=== PATIENT | female | born 1955 | race Caucasian/White ===

== ENCOUNTER 2023-05-29 21:08 | Emergency (ER) | payer MEDICARE, SELFPAY ==
--- NOTE | ~2023-05-29 | CT_ITS ---
EXAMINATION: CT CHEST WITHOUT CONTRAST CLINICAL INFORMATION: Fall, right lower rib pain COMPARISON: None available. TECHNIQUE: Multidetector volumetric CT imaging of the chest was done. Axial MIP volume rendering provided. Sagittal and coronal reformatted images were obtained. This CT examination was performed using dose optimization techniques as appropriate, variously including the following: *Automated exposure control *Adjustment of mA and/or kV according to patient size (this includes techniques or standardized protocols for targeted exams where dose is matched to indication/reason for exam; i.e. extremities or head) *Use of iterative reconstruction technique DLP: 613 mGy-cm FINDINGS: LUNGS: Several bilateral lung nodules, with energy conservation representative examples as follows. There is a 3 mm right upper lobe nodule on image 175/476. There is a 2 mm anterior right lower lobe nodule on image 264. There is a lateral right middle lobe nodule measuring 2 mm on image 240. There is a 2 mm left upper lobe nodule on image 123. No regions of consolidation bilaterally. MEDIASTINUM: The visualized thyroid gland is unremarkable. Small hiatal hernia is present. Hyperdense material within the esophagus suggests sequelae of reflux or dysmotility. There are subcentimeter mediastinal lymph nodes within the range of normal variation. Cardiac size is within normal limits; no pericardial effusion. Scattered calcification along the aorta. CORONARY ARTERY CALCIFICATION: Present PLEURA: No pneumothorax or pleural effusion. AXILLA: No lymphadenopathy. UPPER ABDOMEN: Calcified granuloma in the liver. Status post cholecystectomy. Partial fatty atrophy of the pancreas. OSSEOUS STRUCTURES: No acute fracture identified. Mild scattered degenerative endplate changes in the spine. Partial visualization of fusion hardware in the cervical spine. CT/CT chest wo IV con IMPRESSION: 1. No acute traumatic findings identified in the chest. 2. Several tiny lung nodules as noted above, nonspecific. See follow-up recommendations below. 3. Small hiatal hernia, with findings suggesting reflux or dysmotility. If clinically warranted, this could be further assessed with fluoroscopic esophagram. 4. Coronary artery calcifications. Correlation with cardiac risk factors is recommended. According to the UPDATED 2017 Fleischner Society recommendations, the advised follow-up imaging for solid nodules < 6 mm is: LOW RISK PATIENT: No routine follow-up. HIGH RISK PATIENT: Optional CT at 12 months.
--- NOTE | ~2023-05-29 | CT_ITS ---
EXAMINATION: CT CERVICAL SPINE WITHOUT CONTRAST CLINICAL INFORMATION: Status post fall COMPARISON: None available. TECHNIQUE: Multidetector helical imaging was performed through the cervical spine. Coronal and sagittal reformatted images were created. This CT examination was performed using dose optimization techniques as appropriate, variously including the following: *Automated exposure control *Adjustment of mA and/or kV according to patient size (this includes techniques or standardized protocols for targeted exams where dose is matched to indication/reason for exam; i.e. extremities or head) *Use of iterative reconstruction technique DLP: 613 mGy-cm FINDINGS: There is mild grade 1 anterolisthesis of C3 on C4 which may be chronic/degenerative in the setting of facet arthropathy. There are postsurgical changes in the mid to lower cervical spine with anterior plate and screws which appears centered at C5-C6. The margins of the C4-C7 vertebral bodies are not adequately delineated, and much of the vertebral bodies appear replaced by an expansile lytic lesion. This also extends into the transverse processes and facets at these levels bilaterally. There is suggestion of at least mild associated central canal narrowing. There is straightening of the normal cervical lordosis. No definite acute fracture is seen in this setting. Visualized portions of the lung apices are unremarkable. The thyroid gland is unremarkable. CT/CT cervical spine wo IV con IMPRESSION: 1. No definite acute findings identified in the cervical spine. 2. Postsurgical changes of the mid to lower cervical spine with anterior plate and screws. The margins of the C4-C7 vertebral bodies are not adequately delineated, and much of the vertebral bodies appear replaced by an expansile lytic lesion. This also extends into the transverse processes and facets at these levels bilaterally. There is suggestion of at least mild associated central canal narrowing. Correlation with patient history is recommended, and if warranted this may be better assessed with MRI.
[2023-05-29 21:20] VITALS: BP 145/73; PULSE 76; RESP 20; TEMP 36.7; O2SAT 98; BMI 24.1
[2023-05-30 00:25] VITALS: BP 154/64; PULSE 70; RESP 17; O2SAT 95
--- NOTE | 2023-05-30 00:47 | ED.FALL ---
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 diagnosed 4 months ago when she was in [place] had MRI done at that time been followed by bone specialist and PCP Related Data Previous Rx's Medication Instructions Recorded oxycodone-acetaminophen 5 mg-325 1 tab PO Q6H PRN pain #20 tabs 05/30/23 mg tablet (Percocet) Allergies Allergy/AdvReac Type Severity Reaction Status Date / Time gabapentin [From Neurontin] Allergy Unknown RASH Unverified 05/29/23 21:26 valdecoxib [From Bextra] Allergy Unknown RASH Unverified 05/29/23 21:26 From Aciphex Allergy Unknown RASH Uncoded 05/29/23 21:26 From Bentyl Allergy Unknown RASH Uncoded 05/29/23 21:26 From Demerol AdvReac Unknown VOMITING Uncoded 05/29/23 21:26 Review of Systems Review of Systems: Yes all other systems are reviewed and are negative [facility] Social History Social History Advance Directives: No Advance Directives Information Provided: Yes Physical Exam Vital Signs: Vital Signs: Last Vital Signs Temp 98 F 05/30/23 02:00 Pulse 73 05/30/23 03:50 Resp 17 05/30/23 03:50 BP 151/71 H 05/30/23 03:50 Pulse Ox 97 05/30/23 03:50 O2 Del Method Room Air 05/30/23 03:50 BMI result Body Mass Index 24.1 Appearance: Alert. Oriented X3. No acute distress. Eyes: PERRLA, No Nystagmus HEENT: Pharynx normal. Oral Mucosa moist, AT NC Neck: Normal inspection. Neck supple. Midline tenderness+ CVS: Normal heart rate and rhythm. Pulses normal. Respiratory: No respiratory distress. Equal air entry bilateral, no wheezing/rales/rhonchi tenderness right under breast anteriorly no crepitation no ecchymosis Abdomen: Soft and nontender. Bowel sounds are present, no mass palpable, no CVA tenderness Skin: Skin warm and dry. Normal skin color. Normal skin turgor. Extremities: No lower extremity edema. No calf tenderness Neuro: Oriented X 3. No motor deficit. No sensory deficit.No cerebellar signs , cranial nerves II-XII intact Medications Administered Discontinued Medications Generic Name Dose Route Start Last Admin Trade Name Amanda PRN Reason Stop Dose Admin Morphine Sulfate 15 mg 05/30/23 00:57 05/30/23 01:22 Morphine Sulfate Immed Release 15 Mg Tablet PO 05/30/23 00:58 15 mg ONCE ONE Administration Ondansetron HCl 4 mg 05/30/23 03:43 05/30/23 03:49 Ondansetron Odt 4 Mg Tab.Rapdis TRANSLINGU 05/30/23 03:44 4 mg ONCE ONE Administration Medical Decision Making Medical Decision Making [facility] Narrative: Patient status post mechanical fall tenderness the right ribs likely rib fracture/rib contusion will do a CT scan of the ribs and C-spine as she has chronic pain in the neck Patient does have a lytic lesion in the cervical spine and which patient new was diagnosed 4 months ago , when she was in [place] and been followed up by her PCP Differential Diagnosis Differential Diagnoses: The differential diagnosis associated with the presentation includes Right rib fracture/contusion Admission/Observation Consideration of admission/observation: Escalation of care including admission/observation considered Independent Interpretation I performed an independent interpretation of an: CT Scan Radiology Impression Discussion of test interpretation with radiology: I have reviewed the radiologist's reading. Radiologist Impression: CT/CT cervical spine wo IV con IMPRESSION: 1. No definite acute findings identified in the cervical spine. 2. Postsurgical changes of the mid to lower cervical spine with anterior plate and screws. The margins of the C4-C7 vertebral bodies are not adequately delineated, and much of the vertebral bodies appear replaced by an expansile lytic lesion. This also extends into the transverse processes and facets at these levels bilaterally. There is suggestion of at least mild associated central canal narrowing. Correlation with patient history is recommended, and if warranted this may be better assessed with MRI. Discharge Plan Discharge Clinical Impression: Contusion of rib on right side Patient Disposition: Home, Self-Care Instructions: Rib Contusion (ED) Additional Instructions: Take pain medication as prescribed for right rib contusion Your CT scan did not reveal any rib fracture CT scan of the cervical spine showed: 1. No definite acute findings identified in the cervical spine. 2. Postsurgical changes of the mid to lower cervical spine with anterior plate and screws. The margins of the C4-C7 vertebral bodies are not adequately delineated, and much of the vertebral bodies appear replaced by an expansile lytic lesion. This also extends into the transverse processes and facets at these levels bilaterally. There is suggestion of at least mild associated central canal narrowing. Correlation with patient history is recommended, and if warranted this may be better assessed with MRI. Follow-up with your PCP for further management Prescriptions: New oxycodone-acetaminophen [Percocet] 5-325 mg tablet 1 tab PO Q6H PRN (Reason: pain) Qty: 20 0RF Rx Instructions: Partial Fill upon patient request. Interventions: ED Discharge Assessment Last Done: 05/30/23 03:57 Discharge Date/Time: 05/30/23 03:58
[2023-05-30] MEDS: Morphine Sulfate Immed Release 15 MG TABLET PO (01:22)
[2023-05-30 02:00] VITALS: BP 156/93; PULSE 88; RESP 16; TEMP 36.6; O2SAT 97
[2023-05-30] MEDS: Ondansetron ODT 4 MG TAB.RAPDIS TRANSLINGU (03:49)
[2023-05-30 03:50] VITALS: BP 151/71; PULSE 73; RESP 17; O2SAT 97
== END 2023-05-30 03:58 | disposition home or self-care (01) ==
PROVIDERS: Emergency Provider Internal Medicine
DX: S20.211A Contusion of right front wall of thorax, initial encounter (principal); W01.0XXA Fall on same level from slipping, tripping and stumbling without subsequent striking against object, initial encounter; Y93.K1 Activity, walking an animal; Y92.9 Unspecified place or not applicable; Y99.9 Unspecified external cause status
CPT/HCPCS: 71250; 72125; 99284

== ENCOUNTER 2025-03-20 10:53 | Outpatient (AMB) | payer MEDICARE, SELFPAY ==
--- NOTE | 2025-03-20 11:07 | A.OFFPC_ITS ---
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 Required: No Accompanied by: Self / Same As Patient Allergies gabapentin (From Neurontin) Allergy (Unknown, Verified 03/20/25 11:07) RASH valdecoxib (From Bextra) Allergy (Unknown, Verified 03/20/25 11:07) RASH From Aciphex Allergy (Unknown, Uncoded 05/29/23 21:) RASH From Bentyl Allergy (Unknown, Uncoded 05/29/23:) RASH From Demerol Adverse Reaction (Unknown, Uncoded 05/29/23:) VOMITING Tobacco use date assessed: 03/20/25 Fall risk assessment: 2 + Falls in past year Last assessed Fall Risk: 03/20/25 Dental Screening Dental Screen Date: 03/20/25 Did you have a dental visit in the last 12 months?: Yes Did you have a dental problem in the last 6 months where you did not have access to dental care?: No Was dental information given to patient?: Patient has dentist HPI HPI Comments History of Present Illness Details History of Present Illness The patient is a 69-year-old female presenting with follow-up for osteomyelitis s/p cervical fusion, management of type 2 diabetes mellitus, and evaluation of neck pain. Osteomyelitis: - The patient had an infection in the ne ck that led to osteomyelitis, requiring surgical intervention with cadaver bone grafts and screws. - The infection was initially identified due to shoulder and neck pain, and the patient underwent surgery on December 10. - Post-surgery, the patient has not foll owed up with the neurosurgeon but was informed that the incision was healing well. - The patient experienced dizziness and headaches, possibly related to medication, and has had difficulty contacting the infectious disease specialist. Type 2 Diabetes Mellitus: - The patient is on Farxiga and insulin therapy, including Lantus and Aspart, for type 2 diabetes mellitus management. - The patient injects 20 units of insuli n at night and has faced issues with medication coverage for fast-acting insulin. Neck Pain: - The patient reports persistent neck pa in following surgery for osteomyelitis, with limited range of motion and difficulty walking. - The patient has a history of falls and uses a Rolator for mobility, with concerns about long-distance walking. Asthma: - The patient uses albuterol and montelu kast for asthma management, with no recent emergency room visits for asthma exacerbations. Hypertension: - The patient is on losartan for hyperte nsion management. Hyperlipidemia: - The patient takes rosuvastatin for hyp erlipidemia management. Depression: - The patient is on fluoxetine for depre ssion and does not currently see a therapist. Dizziness: - The patient reports dizziness, possibl y related to medication, and uses meclizine for management. Slipped Disc: - The patient has a slipped disc in the lumbar region, contributing to back pain and sciatica that radiated to her right thigh. Review of Systems - Neurological: Reports dizziness and he adaches. Denies fever or chills. - Musculoskeletal: Reports neck and shou lder pain, difficulty walking, and falls. - Respiratory: Denies recent asthma exac erbations. - Gastrointestinal: Reports abdominal pa in managed with esomeprazole. 10-point ROS reviewed and negative excep t as noted in HPI Past Medical History - Osteomyelitis with surgical interventi on - Type 2 Diabetes Mellitus - Asthma - Hypertension - Hyperlipidemia - Depression - Slipped disc in lumbar region - Hysterectomy at age 43 Health Maintenance - Mammogram: Due for screening - Colonoscopy: Last performed in 2019, d ue for repeat Physical Exam General: Well-appearing, in no acute distress, but wearing a neck brace. Vital signs: Within normal limits. HEENT: Normocephalic, atraumatic. PERRLA, EOMI. Conjunctiva clear, sclera anicteric. Oropharynx clear, mucous membranes moist. TMs intact bilaterally. Neck: Supple, no lymphadenopathy, no thyromegaly, no JVD or carotid bruits. Limited range of motion due to neck brace and recent surgery from C2 to T2. Cardiovascular: RRR, normal S1/S2, no murmurs, rubs, or gallops. Peripheral pulses 2+ and symmetric. No edema. Respiratory: Lungs clear to auscultation bilaterally, no wheezes, rales, or rhonchi. Normal effort. Abdomen: Soft, non-tender, non-distended. Normoactive bowel sounds. No hepatosplenomegaly, no masses. MSK: Full range of motion, no joint swelling or deformity. Normal gait. Uses a Rolator for ambulation due to difficulty walking and history of falls. Skin: Warm, dry, intact. No rashes, lesions, or pallor. Scar present on the lower crease of the anterior neck. scar on posterior neck from C2-T2 Neuro: Alert and oriented x3. Cranial nerves II-XII intact. Strength 5/5 throughout. Sensation intact. Reflexes 2+ symmetric. Normal coordination and gait with use of rollator. Reports dizziness attributed to medication. Psych: Appropriate mood and affect. Normal judgment and insight. Reports anxiety and depression, managed with fluoxetine. Plan 1. Osteomyelitis - The patient requires follow-up with a neurosurgeon to assess surgical outcomes and healing progress. - Physical therapy is recommended to imp rove mobility and strength. 2. Type 2 Diabetes Mellitus - Continue current medication regimen wi th Farxiga and insulin, addressing medication coverage issues for fast-acting insulin. 3. Neck Pain - Recommend physical therapy to address mobility issues and pain management. 4. Asthma - Monitor asthma symptoms and adjust med ications as needed based on symptom exacerbation. 5. Hypertension - Continue losartan for blood pressure m anagement. 6. Hyperlipidemia - Continue rosuvastatin for lipid manage ment. 7. Depression - Continue fluoxetine for depression man agement, consider therapy referral if symptoms persist. 8. Dizziness - Evaluate medication side effects and a djust treatment as necessary. 9. Slipped Disc - Consider physical therapy to manage sy mptoms and improve function. Discussion Notes During the visit, we discussed the need for follow-up with a neurosurgeon to evaluate the healing of the osteomyelitis surgery. I recommended physical therapy to improve mobility and manage neck pain. We also reviewed the patient's diabetes management plan, emphasizing the importance of medication adherence and addressing coverage issues for insulin. We talked about the patient's asthma management, advising monitoring of symptoms and potential medication adjustments. Additionally, we discussed the continuation of current treatments for hypertension, hyperlipidemia, and depression, with a consideration for therapy referral if depressive symptoms persist. I advised the patient to be vigilant about dizziness and to report any exacerbations. We also planned for routine health maintenance, including mammogram and colonoscopy screenings. Patient Instructions - Follow up with a neurosurgeon to asses s surgical healing. - Attend physical therapy sessions to im prove mobility and manage neck pain. - Continue diabetes medications as presc ribed and address any coverage issues with your provider. - Monitor asthma symptoms and report any exacerbations. - Continue current medications for hyper tension, hyperlipidemia, and depression. - Be aware of dizziness and report any w orsening symptoms. - Schedule routine health screenings, in cluding a mammogram and colonoscopy. [facility] Family History (Updated 03/20/25 @ 11:30 by Wild Hernandez MA) Father Heart problem Mother Diabetes Social History (Updated 03/20/25 @ 11:09 by Wild Hernandez MA) Housing: Apartment Alcohol intake: current Alcohol intake frequency: does not drink Patient Tobacco Use Status: Never used Tobacco service: No Current occupational status: disabled Cognitive needs: Yes (walker and wheel chair) Hearing needs: Yes (b/l hearing aids) Vision needs: Yes (rx glasses) Questionnaire PHQ-9 Over the last 2 weeks, how often have you been bothered by any of the following problems? 1. Little interest or pleasure in doing things: several days 2. Feeling down, depressed, or hopeless: several days 3. Trouble falling or staying asleep, or sleeping too much: several days 4. Feeling tired or having little energy: nearly every day 5. Poor appetite or overeating: several days 6. Feeling bad about yourself - or that you are a failure or have let yourself or your family down: several days 7. Trouble concentrating on things, such as reading the newspaper or watching television: more than half the days 8. Moving or speaking so slowly that other people could have noticed. Or the opposite - being so fidgety or restless that you have been moving around a lot more than usual: nearly every day 9. Thoughts that you would be better off or of hurting yourself in some way: several days Total score: 14 Source: Developed by Drs. Yuan Cruz, Milli Negron, Chuy Toribio and colleagues, with an educational yulia from [employer]. Thrive Questionnaire Date Thrive assessed: 03/20/25 I am a: Parent/Caregiver What is your living situation today?: I have a steady place to live Within the past 12 months, did the food you bought not last and you didn't have the money to get more?: Sometimes True Within the past 12 months, did you worry whether your food would run out before you got money to buy more?: Sometimes True Do you have trouble paying for medicines?: No Do you have trouble getting transportation to medical appointments?: No Do you have trouble paying your heating and electricity bill?: No Do you have trouble taking care of your child, family member or friend?: No Are you currently unemployed and looking for a job?: No Are you interested in more education?: No Please select the resources that you would like help with: None Currently or been in a relationship where the following occur: No concerns reported THRIVE Score: 2 AUDIT C Alcohol Use Questionnaire (AUDIT-C) 1. How often do you have a drink containing alcohol?: Never 3. How often do you have six or more drinks on one occasion?: Never Total Score: 0 CAMILLA-7 AMB Questionnaire CAMILLA-7 Date CAMILLA - 7 assessed: 03/20/25 Feeling nervous, anxious, or on edge: 1 = Several days Not being able to stop or control worryin = Several days Worrying too much about different things: 1 = Several days Trouble relaxin = More than half the days Being so restless that it is hard to sit still: 2 = More than half the days Becoming easily annoyed or irritable: 3 = Nearly every day Feeling afraid as if something awful might happen: 1 = Several days Total CAMILLA-7 score (0-4 normal; 5-9 mild; 10-14 moderate; 15-21 severe): 11 Source: Developed by Drs. Yuan Cruz, Milli Negron, Chuy Toribio and colleagues, with an educational yulia from [employer]. Physical exam (Primary Care) BMI result Body Mass Index 25.5 Tobacco/Smoking Status: Tobacco use Status Tobacco use date assessed 03/20/25 03/20/25 11:11 Patient Tobacco Use Status Never used Tobacco 03/20/25 11:11 PHQ-9: PHQ-9 Score PHQ-9: Total score 14 03/20/25 11:11 Thrive Assessment: Date of Thrive Assessment Date Thrive assessed 03/20/25 03/20/25 11:11 Currently or been in a relationship where the following occur: No concerns reported Coding Level of Care Code New Pt Level 4 (29677) Diagnoses Establishing care with new doctor, encounter for Z76.89 Encounter for screening, unspecified Z13.9 Counseling, unspecified Z71.9 History of osteomyelitis Z87.39 Type 2 diabetes mellitus with other neurologic complication, with long-term current use of insulin E11.49; 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 Diabetes mellitus complication status: with neurologic complications Diabetes mellitus complication detail: with other neurological complication Neck pain after neck surgery M96.89; M54.2 Mild intermittent asthma without complication J45.20 Asthma complication type: uncomplicated Primary hypertension I10 Hypertension type: primary hypertension Other hyperlipidemia E78.49 Hyperlipidemia type: other hyperlipidemia Major depressive disorder, remission status unspecified, unspecified whether recurrent F32.9 Depression Type: major depressive disorder Major depression recurrence: unspecified whether recurrent Active/Remission status: remission status unspecified Dizziness R42 Chronic low back pain with right-sided sciatica, unspecified back pain laterality M54.41; G89.29 Back pain laterality: unspecified Sciatica presence: with sciatica Sciatica laterality: sciatica of right side Sciatica associated with disorder of lumbar spine M53.86 Assessment & Plan Assessment & Plan (1) Establishing care with new doctor, encounter for: Code(s): Z76.89 - Persons encountering health services in other specified circumstances (2) Encounter for screening, unspecified: Code(s): Z13.9 - Encounter for screening, unspecified (3) Counseling, unspecified: Code(s): Z71.9 - Counseling, unspecified (4) History of osteomyelitis: Code(s): Z87.39 - Personal history of other diseases of the musculoskeletal system and connective tissue (5) Diabetes type 2: Code(s): E11.9 - Type 2 diabetes mellitus without complications Qualifiers: Diabetes mellitus jail insulin use: with jail use Diabetes mellitus complication status: with neurologic complications Diabetes mellitus complication detail: with other neurological complication Qualified Code(s): E11.49 - Type 2 diabetes mellitus with other diabetic neurological complication; Z79.4 - dedicated intermodal truck driver (current) use of insulin (6) Neck pain after neck surgery: Code(s): M96.89 - Other intraoperative and postprocedural complications and disorders of the musculoskeletal system; M54.2 - Cervicalgia (7) Asthma, mild intermittent: Code(s): J45.20 - Mild intermittent asthma, uncomplicated Qualifiers: Asthma complication type: uncomplicated Qualified Code(s): J45.20 - Mild intermittent asthma, uncomplicated (8) Hypertension: Code(s): I10 - Essential (primary) hypertension Qualifiers: Hypertension type: primary hypertension Qualified Code(s): I10 - Essential (primary) hypertension (9) Hyperlipidemia: Code(s): E78.5 - Hyperlipidemia, unspecified Qualifiers: Hyperlipidemia type: other hyperlipidemia Qualified Code(s): E78.49 - Other hyperlipidemia (10) Depression: Code(s): F32.A - Depression, unspecified Qualifiers: Depression Type: major depressive disorder Major depression recurrence: unspecified whether recurrent Active/Remission status: remission status unspecified Qualified Code(s): F32.9 - Major depressive disorder, single episode, unspecified (11) Dizziness: Code(s): R42 - Dizziness and giddiness (12) Chronic lower back pain: Code(s): M54.50 - Low back pain, unspecified; G89.29 - Other chronic pain Qualifiers: Back pain laterality: unspecified Sciatica presence: with sciatica Sciatica laterality: sciatica of right side Qualified Code(s): M54.41 - Lumbago with sciatica, right side; G89.29 - Other chronic pain (13) Sciatica associated with disorder of lumbar spine: Code(s): M53.86 - Other specified dorsopathies, lumbar region Plan Orders: Orders Complete Blood Count Auto Diff Today Z13.9 - Encounter for screening, un specified, Z76.89 - Persons encountering health services in other specified circumstances Comprehensive Met. Panel Today Z13.9 - Encounter for screening, unspecified, Z76.89 - Persons encountering health services in other specified circumstances Hepatitis B Surface Antigen Today Z13.9 - Encounter for screening, unspecified, Z76.89 - Persons encountering health services in other specified circumstances Hepatitis C Antibody Reflex Today Z13.9 - Encounter for screening, unspecified, Z76.89 - Persons encountering health services in other specified circumstances HIV Ab/Ag Today Z13.9 - Encounter for screening, unspecified, Z76.89 - Persons encountering health services in other specified circumstances Lipid Panel Today Z13.9 - Encounter for screening, unspecified, Z76.89 - Persons encountering health services in other specified circumstances TSH reflex Free T4 Today Z13.9 - Encounter for screening, unspecified, Z76.89 - Persons encountering health services in other specified circumstances UA CC w/rflx Micro + Cult Today Z13.9 - Encounter for screening, unspecified, Z76.89 - Persons encountering health services in other specified circumstances Vitamin B12 and Folate Today Z13.9 - Encounter for screening, unspecified, Z76.89 - Persons encountering health services in other specified circumstances Vitamin D 1,25 dihydroxy Today Z13.9 - Encounter for screening, unspecified, Z76.89 - Persons encountering health services in other specified circumstances MM screening mammo BI Today Z12.31 - Encounter for screening mammogram for malignant neoplasm of breast Hemoglobin A1c Today Z13.9 - Encounter for screening, unspecified, Z76.89 - Persons encountering health services in other specified circumstances Hepatitis B Surface Antibody Today Z13.9 - Encounter for screening, unspecified, Z76.89 - Persons encountering health services in other specified circumstances Magnesium Today Z13.9 - Encounter for screening, unspecified, Z76.89 - Persons encountering health services in other specified circumstances PT Evaluation and Treatment Today Z98.1 - Arthrodesis status Referrals Neuro Spine Referral Z87.39 - Personal history of other diseases of the musculoskeletal system and connective tissue, Z98.1 - Arthrodesis status Open Access Screening Colonoscopy Referral Z12.11 - Encounter for screening for malignant neoplasm of colon, Z12.12 - Encounter for screening for malignant neoplasm of rectum
[2025-03-20 11:12] VITALS: BP 116/62; PULSE 81; RESP 16; TEMP 36.7; O2SAT 100; BMI 25.5
== END 2025-03-20 12:07 | disposition home or self-care (01) ==
LOC: HO.HMCFMS 10:53
PROVIDERS: Visit Provider Student in an Organized Health Care Education/Training Program
DX: E11.49 Type 2 diabetes mellitus with other diabetic neurological complication (principal); Z79.4 Long term (current) use of insulin; M96.89 Other intraoperative and postprocedural complications and disorders of the musculoskeletal system; M54.2 Cervicalgia; J45.20 Mild intermittent asthma, uncomplicated; I10 Essential (primary) hypertension; E78.49 Other hyperlipidemia; F32.9 Major depressive disorder, single episode, unspecified; R42 Dizziness and giddiness; M54.41 Lumbago with sciatica, right side; G89.29 Other chronic pain; M53.86 Other specified dorsopathies, lumbar region

== ENCOUNTER → 2025-03-20 10:53 | Outpatient (BNVA) | payer MEDICARE, SELFPAY | PROVIDERS: Visit Provider Student in an Organized Health Care Education/Training Program | DX: Z76.89 Persons encountering health services in other specified circumstances (principal); E11.49 Type 2 diabetes mellitus with other diabetic neurological complication; I10 Essential (primary) hypertension; M96.89 Other intraoperative and postprocedural complications and disorders of the musculoskeletal system; M54.2 Cervicalgia; J45.20 Mild intermittent asthma, uncomplicated; E78.49 Other hyperlipidemia; F32.9 Major depressive disorder, single episode, unspecified; R42 Dizziness and giddiness; M54.41 Lumbago with sciatica, right side; G89.29 Other chronic pain; M53.86 Other specified dorsopathies, lumbar region; Z79.4 Long term (current) use of insulin; Z87.39 Personal history of other diseases of the musculoskeletal system and connective tissue; Z71.9 Counseling, unspecified; Z13.30 Encounter for screening examination for mental health and behavioral disorders, unspecified; Z13.39 Encounter for screening examination for other mental health and behavioral disorders | CPT/HCPCS: 96127; 99202 ==

== ENCOUNTER 2025-03-21 09:55 | Outpatient (REF) | payer MEDICARE, SELFPAY ==
[2025-03-21 13:22] LABS: MANUAL DIFF FLAG NO
[2025-03-21 13:35] LABS: Appearance Urine Clear; Glucose Urine UA >=1000 mg/dL (Negative); PH 6.0 (5.0-9.0); Specific Gravity - Urine 1.020 (1.005-1.025); UMIC TRIGGER UACC YES
[2025-03-21 13:48] LABS: Hematocrit 33.7 % (37.0-47.0); Hemoglobin 10.3 g/dl (12.0-16.0); Imm Gran Abs Auto 0.04 X10*3/uL (0.00-0.03); Imm Gran Pct Auto 0.5 % (0.0-0.4); Lymphocytes Absolute Auto 2.1 X10*3/uL (1.2-4.9); Mean Corpuscular HGB Conc 30.6 g/dl (31.0-35.0); Mean Corpuscular Hemoglobin 23.6 pg (27.0-33.0); Mean Corpuscular Volume 77.3 fL (80.0-98.0); NRBC Abs Auto 0.020 X10*3/uL (0.0-0.012); NRBC Pct Auto 0.2 /100WBC (0.0-0.2); Platelet Count 322 X10*3/uL (160-400); Red Blood Count 4.36 X10*6/uL (4.20-5.50); White Blood Count 8.6 X10*3/uL (4.8-10.8)
[2025-03-21 14:07] LABS: Hemoglobin A1C 166.9278 umol/L; Total Hemoglobin (HGBA1C) 2744.6418 umol/L
[2025-03-21 14:35] LABS: Alanine Aminotransferase 44 U/L (0-31); Albumin Level 4.1 g/dL (3.5-5.0); Alkaline Phosphatase 112 U/L (39-117); Anion Gap 10 (12-20); Aspartate Amino Transferase 37 U/L (5-31); Blood Urea Nitrogen 16 mg/dL (9-16); Calcium 9.1 mg/dL (8.4-10.2); Carbon Dioxide 29 mmol/L (22-29); Chloride 110 mmol/L (96-108); Cholesterol 137 mg/dL (<200); Estimated Glomerular Filt Rate > 60; HDL Cholesterol 49 mg/dL (>40); Magnesium 2.3 mg/dL (1.6-2.6); Potassium 4.7 mmol/L (3.3-5.1); Sodium 144 mmol/L (135-145); Total Protein 7.0 g/dL (6.5-8.0); Triglycerides 122 mg/dL (<150)
[2025-03-21 14:58] LABS: Folate 12.3 ng/mL (> or = 4.0); Vitamin B12 533 pg/mL (200-900)
[2025-03-22 09:01] LABS: HBS Num1 36.13 mIU/mL (0-7.99); HIV Num 1 0.06 S/CO (0.00-0.99); ~HepC Num1 0.08 S/CO (0.00-0.79); ~Hepatitis B Surface Antibody REACTIVE (Nonreactive); ~Hepatitis C Antibody Nonreactive (Nonreactive)
[2025-03-22 09:56] LABS: HBsAGNum1 0.26 S/CO (0.00-0.99); Hepatitis B Surface Antigen Negative (Negative)
[2025-03-26 16:24] LABS: VITAMIN D (1,25 OH) D3 9 pg/mL; Vit D (1,25-Dihydroxy) Total 21 pg/mL (18-72); Vitamin D (1,25 OH) D2 12 pg/mL
== END 2025-03-21 09:56 | disposition home or self-care (01) ==
LOC: HO.HKASLDS 09:55
PROVIDERS: Visit Provider Student in an Organized Health Care Education/Training Program
DX: Z13.89 Encounter for screening for other disorder (principal); Z13.6 Encounter for screening for cardiovascular disorders; Z13.1 Encounter for screening for diabetes mellitus; Z11.4 Encounter for screening for human immunodeficiency virus [HIV]; Z13.29 Encounter for screening for other suspected endocrine disorder; Z76.89 Persons encountering health services in other specified circumstances
CPT/HCPCS: 36415; 80053; 80061; 81001; 82607; 82652; 82746; 83036; 83735; 84443; 85025; 86706; 86803; 87340; 87389

== ENCOUNTER 2025-04-04 10:54 | Outpatient (AMB) | payer MEDICARE, SELFPAY ==
--- NOTE | 2025-04-04 10:57 | A.OFFPC_ITS ---
Vital Signs 04/04/25 10:58 Height 5 ft 1.57 in Weight 131 lb 2 oz BMI 24.3 BP 132/58 L Blood Pressure Location Lt brachial Position Sitting Respiration 16 Pulse 94 Pulse Source Pulse Oximeter Temp 97.8 F Temp Source Oral Pulse Oximetry (%) 99 Oxygen Delivery Method Room Air Intake Visit Reasons: 2 wk f/u Community Association Manager Required: No Accompanied by: Self / Same As Patient Allergies gabapentin (From Neurontin) Allergy (Unknown, Verified 04/04/25 11:01) RASH valdecoxib (From Bextra) Allergy (Unknown, Verified 04/04/25 11:01) RASH From Aciphex Allergy (Unknown, Uncoded 05/29/23 21:) RASH From Bentyl Allergy (Unknown, Uncoded 05/29/23 21:) RASH From Demerol Adverse Reaction (Unknown, Uncoded 05/29/23:) VOMITING Tobacco use date assessed: 03/20/25 Fall risk assessment: 2 + Falls in past year Last assessed Fall Risk: 03/20/25 Dental Screening Dental Screen Date: 03/20/25 Did you have a dental visit in the last 12 months?: Yes Did you have a dental problem in the last 6 months where you did not have access to dental care?: No Was dental information given to patient?: Patient has dentist HPI HPI Comments History of Present Illness Details History of Present Illness The patient is a 69-year-old female presenting for follow-up on multiple chronic conditions and preventative care. Medical records still pending Osteomyelitis: - History of osteomyelitis following cer vical fusion surgery. - Hospitalized for two weeks post-surger y for antibiotic treatment. Type 2 Diabetes Mellitus: - Diagnosed with type 2 diabetes mellitu s, currently managed with insulin and Farxiga. - Recent hemoglobin A1c increased from 7 .4% to 7.7%. - Morning blood glucose levels range fro m 140 to 159 mg/dL. Anemia: - Recent lab work indicates low hemoglob in levels. - History of low iron during pregnancies . - Suspected to be related to recent surg gavin and dietary intake. Elevated Liver Enzymes: - Liver function tests show elevated ALT and liver enzymes. - No prior ultrasound for fatty liver di agnosis. - History of high Tylenol use for pain m anagement. Review of Systems - Neurological: Reports vertigo since [place]. Denies associated pain. - Hematologic: Reports history of low ir on during pregnancies. Denies current bleeding. 10-point ROS reviewed and negative excep t as noted in HPI Past Medical History - Osteomyelitis status post cervical fus ion - Type 2 Diabetes Mellitus - Anemia - Elevated liver enzymes Health Maintenance - Colonoscopy referral for preventative care - Ultrasound recommended for fatty liver follow-up - Mammogram completed on the Physical Exam General: Well-appearing, in no acute distress. Vital signs: Within normal limits. HEENT: Normocephalic, atraumatic. PERRLA, EOMI. Conjunctiva clear, sclera anicteric. Oropharynx clear, mucous membranes moist. TMs intact bilaterally. Reports vertigo, no ear pain. Neck: Supple, no lymphadenopathy, no thyromegaly, no JVD or carotid bruits. Cardiovascular: RRR, normal S1/S2, no murmurs, rubs, or gallops. Peripheral pulses 2+ and symmetric. No edema. Respiratory: Lungs clear to auscultation bilaterally, no wheezes, rales, or rhonchi. Normal effort. Abdomen: Soft, non-tender, non-distended. Normoactive bowel sounds. No hepatosplenomegaly, no masses. MSK: Full range of motion, no joint swelling or deformity. Normal gait. Skin: Warm, dry, intact. No rashes, lesions, or pallor. Neuro: Alert and oriented x3. Cranial nerves II-XII intact. Strength 5/5 throughout. Sensation intact. Reflexes 2+ symmetric. Normal coordination and gait. Psych: Appropriate mood and affect. Normal judgment and insight. Plan 1. Osteomyelitis - Continue monitoring post-surgical fred very and manage any residual symptoms. - neurosurgery consult pending 2. Type 2 Diabetes Mellitus - Maintain current insulin and Farxiga r egimen. - Monitor blood glucose levels regularly . - Re-evaluate A1c in three months. 3. Anemia - Initiate iron supplementation with vit laughlin C to enhance absorption. - Reassess hemoglobin levels in three mo nths. 4. Elevated Liver Enzymes - Schedule ultrasound to evaluate fatty liver. - Review Tylenol usage and consider alte rnatives for pain management. Discussion Notes I discussed with the patient the importance of managing her type 2 diabetes mellitus and the need to monitor her blood glucose levels regularly. We also talked about the plan to initiate iron supplementation for her anemia and the potential need for hematology referral if her condition does not improve. Additionally, I recommended an ultrasound to evaluate her liver enzymes and discussed the possibility of adjusting her pain management regimen to reduce Tylenol intake. Patient was informed and verbally consented to the use of an ambient scribe for clinic note documentation during this visit. Patient Instructions - Take iron supplements with vitamin C t o improve absorption. - Monitor blood sugar levels daily and r eport any significant changes. - Schedule and attend the ultrasound for liver evaluation. - Follow up in three months or sooner if symptoms worsen. Total time spent caring for the patient today was 30 minutes. This includes time spent before the visit reviewing the chart, time spent documenting, and time spent reviewing laboratory results medications, performing a medically necessary evaluation, counseling on diagnoses, care coordination ordering appropriate medications, reporting test results with the patient, ] [facility] Medical History (Updated 04/04/25 @ 11:15 by Maxi Peres MD) Elevated liver enzymes Chronic anemia Family History Father Heart problem Mother Diabetes Social History Housing: Apartment Alcohol intake: current Alcohol intake frequency: does not drink Patient Tobacco Use Status: Never used Tobacco service: No Current occupational status: disabled Cognitive needs: Yes (walker and wheel chair) Hearing needs: Yes (b/l hearing aids) Vision needs: Yes (rx glasses) Questionnaire PHQ-9 Over the last 2 weeks, how often have you been bothered by any of the following problems? 1. Little interest or pleasure in doing things: several days 2. Feeling down, depressed, or hopeless: several days 3. Trouble falling or staying asleep, or sleeping too much: several days 4. Feeling tired or having little energy: nearly every day 5. Poor appetite or overeating: several days 6. Feeling bad about yourself - or that you are a failure or have let yourself or your family down: several days 7. Trouble concentrating on things, such as reading the newspaper or watching television: more than half the days 8. Moving or speaking so slowly that other people could have noticed. Or the opposite - being so fidgety or restless that you have been moving around a lot more than usual: nearly every day 9. Thoughts that you would be better off or of hurting yourself in some way: several days Total score: 14 Source: Developed by Drs. Yuan Cruz, Chuy Holm and colleagues, with an educational yulia from [employer] Thrive Questionnaire Date Thrive assessed: 03/20/25 I am a: Parent/Caregiver What is your living situation today?: I have a steady place to live Within the past 12 months, did the food you bought not last and you didn't have the money to get more?: Sometimes True Within the past 12 months, did you worry whether your food would run out before you got money to buy more?: Sometimes True Do you have trouble paying for medicines?: No Do you have trouble getting transportation to medical appointments?: No Do you have trouble paying your heating and electricity bill?: No Do you have trouble taking care of your child, family member or friend?: No Are you currently unemployed and looking for a job?: No Are you interested in more education?: No Please select the resources that you would like help with: None Currently or been in a relationship where the following occur: No concerns reported THRIVE Score: 2 AUDIT C Alcohol Use Questionnaire (AUDIT-C) 1. How often do you have a drink containing alcohol?: Never 3. How often do you have six or more drinks on one occasion?: Never Total Score: 0 CAMILLA-7 AMB Questionnaire CAMILLA-7 Date CAMILLA - 7 assessed: 03/20/25 Feeling nervous, anxious, or on edge: 1 = Several days Not being able to stop or control worryin = Several days Worrying too much about different things: 1 = Several days Trouble relaxin = More than half the days Being so restless that it is hard to sit still: 2 = More than half the days Becoming easily annoyed or irritable: 3 = Nearly every day Feeling afraid as if something awful might happen: 1 = Several days Total CAMILLA-7 score (0-4 normal; 5-9 mild; 10-14 moderate; 15-21 severe): 11 Source: Developed by Drs. Yuan Cruz, Chuy Holm and colleagues, with an educational yulia from [employer] Physical exam (Primary Care) Vital Signs: Last Vital Signs Temp 97.8 F 04/04/25 10:58 Pulse 94 04/04/25 10:58 Resp 16 04/04/25 10:58 BP 132/58 L 04/04/25 10:58 Pulse Ox 99 04/04/25 10:58 Oxygen Delivery Method Room Air 04/04/25 10:58 BMI result Body Mass Index 24.3 Tobacco/Smoking Status: Tobacco use Status Tobacco use date assessed 03/20/25 04/04/25 11:04 Patient Tobacco Use Status Never used Tobacco 04/04/25 11:04 PHQ-9: PHQ-9 Score PHQ-9: Total score 14 04/04/25 11:04 Thrive Assessment: Date of Thrive Assessment Date Thrive assessed 03/20/25 04/04/25 11:04 Currently or been in a relationship where the following occur: No concerns reported Coding Level of Care Code Est Pt Level 4 (74530) Diagnoses Elevated liver enzymes R74.8 Chronic anemia D64.9 History of osteomyelitis Z87.39 Type 2 diabetes mellitus E11.9 Iron deficiency anemia D50.9 History of fusion of cervical spine Z98.1 History of vertigo Z87.898 Impaired gait and mobility R26.89 Assessment & Plan Assessment & Plan (1) Elevated liver enzymes: Code(s): R74.8 - Abnormal levels of other serum enzymes Category: Medical (2) Chronic anemia: Code(s): D64.9 - Anemia, unspecified Category: Medical (3) History of osteomyelitis: Code(s): Z87.39 - Personal history of other diseases of the musculoskeletal system and connective tissue (4) Type 2 diabetes mellitus: Code(s): E11.9 - Type 2 diabetes mellitus without complications (5) Iron deficiency anemia: Code(s): D50.9 - Iron deficiency anemia, unspecified (6) History of fusion of cervical spine: Code(s): Z98.1 - Arthrodesis status (7) History of vertigo: Code(s): Z87.898 - Personal history of other specified conditions (8) Impaired gait and mobility: Code(s): R26.89 - Other abnormalities of gait and mobility Plan Orders: Orders US abdomen limited Today R74.8 - Abnormal levels of other serum enzymes Medications: New ascorbic acid (vitamin C) 500 mg PO DAILY 90 tabs 0RF D64.9 - Anemia, unspecified ferrous sulfate 325 mg PO DAILY 90 tabs 0RF
[2025-04-04 10:58] VITALS: BP 132/58; PULSE 94; RESP 16; TEMP 36.6; O2SAT 99; BMI 24.3
== END 2025-04-04 11:25 | disposition home or self-care (01) ==
LOC: HO.HMCFMS 10:55
PROVIDERS: PCP Student in an Organized Health Care Education/Training Program; Visit Provider Student in an Organized Health Care Education/Training Program
DX: R74.8 Abnormal levels of other serum enzymes (principal); D64.9 Anemia, unspecified; Z87.39 Personal history of other diseases of the musculoskeletal system and connective tissue; E11.9 Type 2 diabetes mellitus without complications; D50.9 Iron deficiency anemia, unspecified; Z98.1 Arthrodesis status; Z87.898 Personal history of other specified conditions; R26.89 Other abnormalities of gait and mobility

== ENCOUNTER → 2025-04-04 10:54 | Outpatient (BNVA) | payer MEDICARE, SELFPAY | PROVIDERS: PCP Student in an Organized Health Care Education/Training Program; Visit Provider Student in an Organized Health Care Education/Training Program | DX: E11.9 Type 2 diabetes mellitus without complications (principal); D64.9 Anemia, unspecified; R74.8 Abnormal levels of other serum enzymes; Z87.39 Personal history of other diseases of the musculoskeletal system and connective tissue; D50.9 Iron deficiency anemia, unspecified; Z98.1 Arthrodesis status; Z87.898 Personal history of other specified conditions; R26.89 Other abnormalities of gait and mobility; Z13.31 Encounter for screening for depression; Z13.39 Encounter for screening examination for other mental health and behavioral disorders | CPT/HCPCS: 96127; 99212 ==

== ENCOUNTER 2025-04-20 13:19 | Outpatient (REF) | payer MEDICARE, SELFPAY | END 2025-04-20 13:20 | disposition home or self-care (01) | LOC: HO.MAMMO 13:19 | PROVIDERS: Visit Provider Student in an Organized Health Care Education/Training Program | DX: Z12.31 Encounter for screening mammogram for malignant neoplasm of breast (principal) | CPT/HCPCS: 77063; 77067 ==

== ENCOUNTER → 2025-04-20 13:30 | Outpatient (BNV) | payer MEDICARE, SELFPAY | PROVIDERS: Visit Provider Internal Medicine | DX: Z12.31 Encounter for screening mammogram for malignant neoplasm of breast (principal) | CPT/HCPCS: 77063; 77067 ==

== ENCOUNTER 2025-04-28 12:32 | Outpatient (REF) | payer MEDICARE, MEDICAID, SELFPAY ==
[2025-04-28 19:16] LABS: Resp Syncy Virus RNA Qual PCR NEGATIVE (Negative); SARS COV2 PCR INHOUSE NEGATIVE (Negative)
== END 2025-04-28 12:33 | disposition home or self-care (01) ==
LOC: HO.LNP 12:32
PROVIDERS: PCP Student in an Organized Health Care Education/Training Program; Visit Provider Family Medicine
DX: R09.81 Nasal congestion (principal); R05.9 Cough, unspecified; R51.9 Headache, unspecified; H92.01 Otalgia, right ear; R42 Dizziness and giddiness; Z79.51 Long term (current) use of inhaled steroids
CPT/HCPCS: 87637; 99212

== ENCOUNTER 2025-04-28 12:32 | Outpatient (AMB) | payer MEDICARE, MEDICAID, SELFPAY ==
--- NOTE | 2025-04-28 12:41 | AM.OFFWIN_ITS ---
Intake Vital Signs 04/28/25 12:42 Height 5 ft 1.57 in Weight 135 lb BMI 25.0 BP 106/58 L Blood Pressure Location Rt brachial Position Sitting Pulse 87 Pulse Source Pulse Oximeter Temp 99.7 F Temp Source Oral Pulse Oximetry (%) 96 Oxygen Delivery Method Room Air Intake Visit Reasons: ep - Dizziness, Headaches Intake Note: EP complains of dizziness, light headiness and a feeling of pressure in her head for the last three days. Patient Tobacco Use Status: Never used Tobacco Allergies gabapentin (From Neurontin) Allergy (Unknown, Verified 04/28/25 12:52) RASH valdecoxib (From Bextra) Allergy (Unknown, Verified 04/28/25 12:52) RASH From Aciphex Allergy (Unknown, Uncoded 04/28/25 12:52) RASH From Bentyl Allergy (Unknown, Uncoded 04/28/25 12:52) RASH From Demerol Adverse Reaction (Unknown, Uncoded 04/28/25 12:52) VOMITING Medication List - Last Reconciled 04/28/25 by Yaritza Garg MD albuterol sulfate 90 mcg/actuation inhalation ascorbic acid (vitamin C) 500 mg PO DAILY baclofen 5 mg PO TID dapagliflozin propanediol (Farxiga) 10 mg PO DAILY diclofenac potassium 50 mg PO BID esomeprazole magnesium 40 mg PO DAILY ferrous sulfate 325 mg PO DAILY fluoxetine 20 mg PO DAILY fluticasone propionate 50 mcg/actuation sprays intranasal hydroxyzine HCl 25 mg PO DAILY insulin aspart (niacinamide) 100 unit/mL (3 mL) (Fiasp FlexTouch U-100 Insulin) subcut insulin glargine (Lantus Solostar U-100 Insulin) units subcut losartan 100 mg PO DAILY meclizine mg PO oxycodone mg PO pregabalin 50 mg PO TID tamsulosin mg PO Do you need a note to return to daycare/school/sports/work: No HPI HPI Comments History of Present Illness Details History of Present Illness The patient is a 69-year-old female presenting with headache and congestion - The patient reports feeling headaches, lightheaded, congestion, chest tightness, and cough for the last 3 days - Reports her granddaughter had URI symp toms recently - Denies fever as per reports feeling wa rm. - States she has also been having pain i n the right ear. Removed some ear wax with a irving pin from the right ear. - States she is having some trouble hear ing from the right ear - No new medications recently introduced except ferrous sulfate and calcium supplements. - She denies any recent runny nose but r eports nasal congestion and stuffiness. - She reports a history of vertigo at [facility]. - Tylenol has been helping with headache s. Currently denies headaches. Last took tylenol prior to arrival. Review of Systems Constitutional: Negative for fevers. Reports chills HENT: Reports congestion, ear pain. Negative for rhinorrhea, sore throat Respiratory: Positive for cough and chest tightness. Negative for shortness of breath and wheezing Cardiac: Negative for chest pain Gastrointestinal: Negative for nausea, vomiting, diarrhea, Musculoskeletal: Negative for myalgias Neurological: Positive for dizziness, headaches Physical Exam General Appearance: Normal appearance, well developed. No acute distress ENT: External ears and ear canals normal. Right TM noted to have middle ear effusion, without erythema or bulging. Left TM WNL. No significant nasal discharge. Postnasal drip noted. Oropharynx clear without erythema or exudate. Head: Normocephalic, atraumatic. Pulmonary: No respiratory distress. Clear to auscultation bilaterally. Speaking in full sentences Cardiac: Regular rate and rhythm. No murmurs. Musculoskeletal: Moving all extremities spontaneously and against gravity Mental Status: Alert and Oriented x 3 Psychiatric: Normal mood. Normal affect. [facility] Medical History (Updated 04/15/25 @ 18:55 by Maxi Peres MD) Cervical stenosis (uterine cervix) Elevated liver enzymes Chronic anemia Family History Father Heart problem Mother Diabetes Social History Housing: Apartment Alcohol intake: current Alcohol intake frequency: does not drink Patient Tobacco Use Status: Never used Tobacco service: No Current occupational status: disabled Cognitive needs: Yes (walker and wheel chair) Hearing needs: Yes (b/l hearing aids) Vision needs: Yes (rx glasses) Physical Exam Vital Signs: Last Vital Signs Temp 99.7 F 04/28/25 12:42 Pulse 87 04/28/25 12:42 BP 106/58 L 04/28/25 12:42 Pulse Ox 96 04/28/25 12:42 Oxygen Delivery Method Room Air 04/28/25 12:42 BMI result Body Mass Index 25.0 Assessment & Plan Assessment & Plan (1) Flu-like symptoms: Code(s): R68.89 - Other general symptoms and signs Plan - Patient presents with flu like symptoms - Covid, flu, rsv swab obtained - Low suspicion for pneumonia given clear lungs to auscultation, afebrile, and patient saturating well--no indication for CXR. - Right middle ear effusion likely contributing to right ear pain. Advised Flonase daily to help with symptoms. Discussed the Flonase may take a couple of days take an effect. - Discussed supportive care including rest and hydration. - Discussed indications that may require return to the walk in or follow up in ER such as worsening cough, chest pain, shortness of breath, or fevers. Orders: Orders SARS-CoV2/FLU/RSV Today R68.89 - Other general symptoms and signs Medications: New fluticasone propionate 50 mcg/actuation administer into each nostril 1 spray intranasal Q24H 16 grams 0RF 14 days Coding Level of Care Code Est Pt Level 3 (37147) Diagnoses Flu-like symptoms R68.89
[2025-04-28 12:42] VITALS: BP 106/58; PULSE 87; TEMP 37.6; O2SAT 96; BMI 25.0
== END 2025-04-28 13:42 | disposition home or self-care (01) ==
PROVIDERS: PCP Student in an Organized Health Care Education/Training Program; Visit Provider Family Medicine
DX: R68.89 Other general symptoms and signs (principal)
CPT/HCPCS: 99213

== ENCOUNTER 2025-05-03 12:42 | Outpatient (AMB) | payer OTHER, SELFPAY ==
--- NOTE | 2025-05-03 13:06 | MHC.PC.OV ---
Vital Signs 05/03/25 13:11 Height 5 ft 1.57 in Weight 134 lb 8 oz BMI 24.9 BP 136/63 Blood Pressure Location Lt brachial Position Sitting Respiration 16 Pulse 94 Pulse Source Monitor Temp 98.2 F Temp Source Oral Pulse Oximetry (%) 96 Oxygen Delivery Method Room Air Intake Visit Reasons: Med concerns Intake Note: med concerns, pressure on her back and head, allergies Meat Selector Required: No Accompanied by: Self / Same As Patient Allergies gabapentin (From Neurontin) Allergy (Unknown, Verified 05/03/25 13:10) RASH valdecoxib (From Bextra) Allergy (Unknown, Verified 05/03/25 13:10) RASH From Aciphex Allergy (Unknown, Uncoded 04/28/25 12:52) RASH From Bentyl Allergy (Unknown, Uncoded 04/28/25 12:52) RASH From Demerol Adverse Reaction (Unknown, Uncoded 04/28/25 12:52) VOMITING Medication List - Last Reconciled 05/03/25 by Maxi Peres MD albuterol sulfate 90 mcg/actuation inhalation ascorbic acid (vitamin C) 500 mg PO DAILY baclofen 5 mg PO TID dapagliflozin propanediol (Farxiga) 10 mg PO DAILY diclofenac potassium 50 mg PO BID esomeprazole magnesium 40 mg PO DAILY ferrous sulfate 325 mg PO DAILY fluoxetine 20 mg PO DAILY fluticasone propionate 50 mcg/actuation 1 spray intranasal Q24H 14 days hydroxyzine HCl 25 mg PO DAILY insulin aspart (niacinamide) 100 unit/mL (3 mL) (Fiasp FlexTouch U-100 Insulin) subcut insulin glargine (Lantus Solostar U-100 Insulin) units subcut lidocaine 5% 2 patches topical DAILY losartan 100 mg PO DAILY meclizine mg PO pregabalin 50 mg PO BID tamsulosin mg PO Tobacco use date assessed: 03/20/25 Fall risk assessment: 2 + Falls in past year Last assessed Fall Risk: 05/03/25 Dental Screening Dental Screen Date: 03/20/25 HPI HPI Comments History of Present Illness Details History of Present Illness The patient is a 69-year-old female presenting with ongoing back pain and for medication management. chronic cervical pain The patient has chronic cervical neck pain pain related to a prior surgery for osteomyelitis. She also reports a history of a slipped disc in the lumbar region, specifically before the coccyx. An MRI has been ordered but not completed due to a recent change in her insurance. She has a referral for physical therapy but has not attended yet. The patient has previously seen a neuro-spine surgeon once. For pain management prior to her surgery, she used to take Tylenol, Lyrica, and Cymbalta. She reports running out of her pregabalin (Lyrica) and notes she takes it twice daily, although it was prescribed for three times a day. The patient explicitly states she does not want oxycodone. Surgical History: - Back surgery for osteomyelitis Medications: - Baclofen 5 mg, a muscle relaxant. - Pregabalin (Lyrica) 50 mg, taken twice a day for pain. - Tylenol for arthritis. Social History: - Insurance: The patient recently changed her insurance to [facility], which has caused a delay in scheduling her MRI. Past Medical History - Osteomyelitis of the spine, status post-surgery - Lumbar disc displacement - Cervicalgia - Arthritis Health Maintenance [facility] Medical History (Updated 05/03/25 @ 16:02 by Maxi Peres MD) Fusion of spine, cervical region Cervical neuropathic pain Elevated liver enzymes Chronic anemia Family History Father Heart problem Mother Diabetes Social History (Updated 05/03/25 @ 13:11 by Robert Wilkins MA) Housing: Apartment Alcohol intake: current Alcohol intake frequency: does not drink Patient Tobacco Use Status: Never used Tobacco service: No Current occupational status: disabled Cognitive needs: Yes (walker and wheel chair) Hearing needs: Yes (b/l hearing aids) Vision needs: Yes (rx glasses) Questionnaire Thrive Questionnaire Date Thrive assessed: 03/20/25 I am a: Parent/Caregiver What is your living situation today?: I have a steady place to live Within the past 12 months, did the food you bought not last and you didn't have the money to get more?: Sometimes True Within the past 12 months, did you worry whether your food would run out before you got money to buy more?: Sometimes True Do you have trouble paying for medicines?: No Do you have trouble getting transportation to medical appointments?: No Do you have trouble paying your heating and electricity bill?: No Do you have trouble taking care of your child, family member or friend?: No Are you currently unemployed and looking for a job?: No Are you interested in more education?: No Please select the resources that you would like help with: None Currently or been in a relationship where the following occur: No concerns reported THRIVE Score: 2 CAMILLA-7 AMB Questionnaire CAMILLA-7 Date CAMILLA - 7 assessed: 03/20/25 Source: Developed by Drs. Yuan Cruz, Milli Negron, Chuy Toribio and colleagues, with an educational yulia from [employer]. Review of Systems Narrative Review of Systems - Musculoskeletal: Reports ongoing pain in the lower back, a history of a slipped disc in the lumbar area, and cervical pain. 10-point ROS reviewed and negative except as noted in HPI Physical exam (Primary Care) Vital Signs: Last Vital Signs Temp 98.2 F 05/03/25 13:11 Pulse 94 05/03/25 13:11 Resp 16 05/03/25 13:11 BP 136/63 05/03/25 13:11 Pulse Ox 96 05/03/25 13:11 Oxygen Delivery Method Room Air 05/03/25 13:11 BMI result Body Mass Index 24.9 Tobacco/Smoking Status: Tobacco use Status Tobacco use date assessed 03/20/25 05/03/25 13:08 Patient Tobacco Use Status Never used Tobacco 05/03/25 13:11 Thrive Assessment: Date of Thrive Assessment Date Thrive assessed 03/20/25 05/03/25 13:08 Currently or been in a relationship where the following occur: No concerns reported Narrative Physical Exam General: Well-appearing, in no acute distress. Vital signs: Within normal limits. HEENT: Normocephalic, atraumatic. PERRLA, EOMI. Conjunctiva clear, sclera anicteric. Oropharynx clear, mucous membranes moist. TMs intact bilaterally. Neck: Supple, no lymphadenopathy, no thyromegaly, no JVD or carotid bruits. Cardiovascular: RRR, normal S1/S2, no murmurs, rubs, or gallops. Peripheral pulses 2+ and symmetric. No edema. Respiratory: Lungs clear to auscultation bilaterally, no wheezes, rales, or rhonchi. Normal effort. Abdomen: Soft, non-tender, non-distended. Normoactive bowel sounds. No hepatosplenomegaly, no masses. MSK: Full range of motion, no joint swelling or deformity. Normal gait. Skin: Warm, dry, intact. No rashes, lesions, or pallor. Neuro: Alert and oriented x3. Cranial nerves II-XII intact. Strength 5/5 throughout. Sensation intact. Reflexes 2+ symmetric. Normal coordination and gait. Psych: Appropriate mood and affect. Normal judgment and insight. Coding Level of Care Code Est Pt Level 3 (60953) Diagnoses Cervical neuropathic pain M54.12 Fusion of spine, cervical region M43.22 Assessment & Plan Assessment & Plan (1) Cervical neuropathic pain: Code(s): M54.12 - Radiculopathy, cervical region Category: Medical (2) Fusion of spine, cervical region: Code(s): M43.22 - Fusion of spine, cervical region Category: Medical Plan Consent Patient was informed and verbally consented to the use of an ambient scribe for clinic note documentation during this visit. Plan 1. Cervicalgia M54.2 - The MRI order will be followed up on to resolve the delay caused by the patient's recent insurance change. - A referral to Pain Management will be placed to explore other treatment modalities. - The patient is encouraged to follow up with the existing physical therapy referral. - A refill for Pregabalin (Lyrica) 50 mg will be sent, with instructions to take it twice daily. - A prescription for Lidocaine 5% patches will be sent for topical pain relief. - Tylenol 650 mg extended-release is recommended for pain. - Opioids, such as oxycodone, will not be prescribed, consistent with patient preference and clinical judgment. 2. Pending Liver Ultrasound - The office will follow up on the pending liver ultrasound referral, as the patient has not yet been contacted for scheduling. - The patient has been provided with the contact number to also call and facilitate scheduling. Discussion Notes I discussed the patient's persistent lower back pain, acknowledging the delay in obtaining a necessary MRI due to a recent change in her insurance. I explained that we would follow up on the MRI referral and also provide a referral to a paint roller cover machine setter to explore other treatment options. We discussed her medication regimen, and I agreed to refill her pregabalin (Lyrica) at a twice-daily dose and prescribe lidocaine 5% patches for topical relief. We were in agreement about avoiding opioid medications, which she stated she does not want. I also addressed the pending liver ultrasound, confirming the order is in the system and that we would help facilitate scheduling. Patient Instructions - A prescription for Pregabalin (Lyrica) 50 mg has been sent to your pharmacy. Please take one capsule twice a day for your back pain. - A prescription for Lidocaine 5% patches has also been sent. You may apply these to the most painful area of your back for relief. - You may use [id number] Tylenol for arthritis pain, such as the 650 mg extended-release formulation. - We are placing a referral for you to be seen by a paint roller cover machine setter. - We will follow up to make sure you are scheduled for your back MRI and your liver ultrasound. Please expect a call from the scheduling department. - Please continue with your referral to Physical Therapy. - Do not take any opioid pain medications like oxycodone. Medical Decision Making The patient is a 69-year-old female with chronic lower back pain, secondary to a history of osteomyelitis requiring surgery. Her evaluation is currently incomplete as a recommended MRI has been delayed due to an insurance change, which is a barrier to further specialist care with neuro-spine. The management plan focuses on a multimodal, non-opioid approach to pain control. I am referring her to pain management to explore other modalities and continuing her physical therapy referral. Pharmacologically, I am refilling pregabalin for the neuropathic component of her pain at her tolerated dose of BID and adding topical lidocaine patches for localized analgesia, both of which are low-risk options. Opioids are being avoided, which aligns with the patient's explicit preference and my clinical judgment regarding the risks of long-term opioid therapy for chronic non-cancer pain. The plan also involves administrative follow-up to ensure pending diagnostic studies (back MRI and liver ultrasound) are scheduled promptly. Total time spent caring for the patient today was 20 minutes. This includes time spent before the visit reviewing the chart, time spent documenting, and time spent reviewing laboratory results, diagnostic imaging, medications, performing a medically necessary evaluation, counseling on diagnoses, care coordination Orders: Referrals Pain Management Referral M54.12 - Radiculopathy, cervical region, N88.2 - Stricture and stenosis of cervix uteri Pain Management Referral M43.22 - Fusion of spine, cervical region, M54.12 - Radiculopathy, cervical region Medications: New pregabalin 50 mg PO BID 180 caps 0RF lidocaine 5% leave on most painful area for up to 12 hrs 2 patches topical DAILY 30 ea 0RF M54.12 - Radiculopathy, cervical region, N88.2 - Stricture and stenosis of cervix uteri
[2025-05-03 13:11] VITALS: BP 136/63; PULSE 94; RESP 16; TEMP 36.8; O2SAT 96; BMI 24.9
== END 2025-05-03 13:40 | disposition home or self-care (01) ==
LOC: HO.HMCFMS 12:44
PROVIDERS: PCP Student in an Organized Health Care Education/Training Program; Visit Provider Student in an Organized Health Care Education/Training Program
DX: M54.12 Radiculopathy, cervical region (principal); M43.22 Fusion of spine, cervical region

== ENCOUNTER → 2025-05-03 12:42 | Outpatient (BNVA) | payer OTHER, SELFPAY | PROVIDERS: PCP Student in an Organized Health Care Education/Training Program; Visit Provider Student in an Organized Health Care Education/Training Program | DX: M54.12 Radiculopathy, cervical region (principal); M43.22 Fusion of spine, cervical region; M51.26 Other intervertebral disc displacement, lumbar region; N88.2 Stricture and stenosis of cervix uteri | CPT/HCPCS: 99212 ==

== ENCOUNTER 2025-05-17 09:35 | Outpatient (REF) | payer OTHER, SELFPAY ==
--- NOTE | ~2025-05-17 | US_ITS ---
CLINICAL HISTORY: R74.8 - Abnormal levels of other serum enzymes US abdomen limited Comparison: None provided Findings: Liver homogeneous without focal abnormality. Right lobe 13.2 cm length. Main portal vein patent with antegrade flow. Visualized pancreas unremarkable. Gallbladder unremarkable without stones. Common duct 3.4 mm. No wall thickening. Right kidney normal, 10.0 cm in length. Impression: No significant abnormalities. This document has been electronically signed by: Mariano White MD on 05/17/2025 19:46:20
== END 2025-05-17 09:36 | disposition home or self-care (01) ==
LOC: HO.US 09:35
PROVIDERS: PCP Student in an Organized Health Care Education/Training Program; Visit Provider Student in an Organized Health Care Education/Training Program
DX: R74.8 Abnormal levels of other serum enzymes (principal)
CPT/HCPCS: 76705

== ENCOUNTER → 2025-05-17 09:38 | Outpatient (BNV) | payer OTHER, SELFPAY | PROVIDERS: PCP Student in an Organized Health Care Education/Training Program; Visit Provider Radiology Diagnostic Radiology | DX: R74.8 Abnormal levels of other serum enzymes (principal) | CPT/HCPCS: 76705 ==

== ENCOUNTER → 2025-05-28 09:20 | Outpatient (BNV) | payer OTHER, SELFPAY | PROVIDERS: PCP Student in an Organized Health Care Education/Training Program; Visit Provider Radiology Diagnostic Radiology | DX: N88.2 Stricture and stenosis of cervix uteri (principal); M99.61 Osseous and subluxation stenosis of intervertebral foramina of cervical region | CPT/HCPCS: 72141 ==

== ENCOUNTER 2025-05-28 10:05 | Outpatient (REF) | payer OTHER, SELFPAY ==
--- NOTE | ~2025-05-28 | MR_ITS ---
CLINICAL HISTORY: N88.2 - Stricture and stenosis of cervix uteri MR CERVICAL SPINE WITHOUT GADOLINIUM Comparison: CT/SR - CT CERVICAL SPINE WITHOUT IV CONTRAST - 05/30/23 01:02 EST Findings: Stable minimal grade 1 anterolisthesis C3 on C4. Interval removal of C4-6 anterior fusion hardware. Posterior fusion hardware C2-7. C3-4 disc osteophyte complex. No spinal stenosis. Loui-wi-cyblfmpo multilevel bilateral uncovertebral osteophyte foraminal narrowing. Limited assessment at the C5-6 and C6-7 levels. Heterogeneous signal alteration in the C4 and C5 vertebral bodies. Craniocervical junction unremarkable. No cervical fluid collections or masses. Cervical cord normal size and signal. IMPRESSION: 1. No spinal stenosis. No evidence for compressive myelopathy. 2. Gofi-bs-olrmbrcm multilevel bilateral uncovertebral osteophyte foraminal narrowing. 3. Postsurgical changes. 4. Heterogeneous signal alteration in the C4 and C5 vertebral bodies. Osseous marrow replacement process is the primary diagnostic consideration. 5. No acute fracture. 6. Stable grade 1 spondylolisthesis at C3-4. This document has been electronically signed by: Bree Bradley DO on 05/28/2025 12:34:31
== END 2025-05-28 10:06 | disposition home or self-care (01) ==
LOC: HO.MRI 10:05
PROVIDERS: PCP Student in an Organized Health Care Education/Training Program; Visit Provider Student in an Organized Health Care Education/Training Program
DX: N88.2 Stricture and stenosis of cervix uteri (principal); G95.9 Disease of spinal cord, unspecified
CPT/HCPCS: 72141

== ENCOUNTER 2025-05-29 11:23 | Outpatient (AMB) | payer OTHER, SELFPAY ==
--- NOTE | 2025-05-29 11:33 | MHC.OFFVIS ---
Vital Signs 05/29/25 11:37 Height 5 ft 1.57 in Weight 177 lb BMI 32.8 BP 116/57 L Blood Pressure Location Lt brachial Position Sitting Respiration 16 Pulse 88 Pulse Source Pulse Oximeter Pulse Oximetry (%) 100 Oxygen Delivery Method Room Air Intake Visit Reasons: Radiculopathy, cervical region Time Clock Inspector Required: No Allergies gabapentin (From Neurontin) Allergy (Unknown, Verified 05/29/25 11:38) RASH valdecoxib (From Bextra) Allergy (Unknown, Verified 05/29/25 11:38) RASH From Aciphex Allergy (Unknown, Uncoded 05/29/25 11:38) RASH From Bentyl Allergy (Unknown, Uncoded 05/29/25 11:38) RASH From Demerol Adverse Reaction (Unknown, Uncoded 05/29/25 11:38) VOMITING Medication List - Last Reconciled 05/29/25 by Sarai Vera LPN albuterol sulfate 90 mcg/actuation inhalation ascorbic acid (vitamin C) 500 mg PO DAILY baclofen 5 mg PO TID dapagliflozin propanediol (Farxiga) 10 mg PO DAILY diclofenac potassium 50 mg PO BID esomeprazole magnesium 40 mg PO DAILY ferrous sulfate 325 mg PO DAILY fluoxetine 20 mg PO DAILY fluticasone propionate 50 mcg/actuation 1 spray intranasal Q24H 14 days hydroxyzine HCl 25 mg PO DAILY insulin aspart (niacinamide) 100 unit/mL (3 mL) (Fiasp FlexTouch U-100 Insulin) subcut insulin glargine (Lantus Solostar U-100 Insulin) 20 units (0.2 mL) subcut QPM lidocaine 5% 2 patches topical DAILY losartan 100 mg PO DAILY meclizine mg PO pregabalin 50 mg PO BID tamsulosin mg PO HPI HPI Radiculopathy, cervical region: Details: History of Present Illness The patient is a 69-year-old individual presenting with a complaint of cervical radiculopathy. The patient rates the pain as an 8/10 with an aching, stabbing quality that occurs throughout the day, is worse on the right side, and radiates into the shoulders. The patient has a significant past surgical history, including a C2 to C7 posterior neck fusion and a C4 to C6 anterior neck fusion, with subsequent removal of the anterior cervical hardware. This was complicated by C-spine osteomyelitis. The patient reports that deteriorating bones necessitated the use of cadaver bones and pins placed from the back. The back surgery was performed in [place] on December 10 of this year. Prior to the surgery, the patient was unable to walk and was falling over. Postoperatively, the patient developed a severe infection. Currently, the patient is ambulatory with the assistance of a walker but cannot walk without it. An MRI of the cervical spine was completed yesterday. Pain Description - Onset and Timing: Pain is present throughout the day. - Quality and Character: Pain is described as an 8/10 aching and stabbing sensation. - Location: The pain is located in the neck, with the right side being more severe. - Radiation: The pain radiates down into the patient's shoulders. Physical Exam - Neck: Inspection of the posterior neck was performed. Midline scar from posterior neck surgery. Results - Imaging: - MRI of the cervical spine: Performed yesterday; results not detailed in the conversation. Pain Management - Analgesia: The patient's current pain level is an 8/10 on the pain scale. - Activities of Daily Living: The patient is now able to walk with the assistance of a walker. [facility] Medical History (Updated 05/29/25 @ 14:04 by Vladimir Blank MD) Fusion of spine, cervical region Cervical neuropathic pain Elevated liver enzymes Chronic anemia Family History Father Heart problem Mother Diabetes Social History (Updated 05/03/25 @ 13:11 by Robert Wilkins CMA) Housing: Apartment Alcohol intake: current Alcohol intake frequency: does not drink Patient Tobacco Use Status: Never used Tobacco service: No Current occupational status: disabled Cognitive needs: Yes (walker and wheel chair) Hearing needs: Yes (b/l hearing aids) Vision needs: Yes (rx glasses) Physical Exam Vital Signs: Last Vital Signs Pulse 88 05/29/25 11:37 Resp 16 05/29/25 11:37 BP 116/57 L 05/29/25 11:37 Pulse Ox 100 05/29/25 11:37 Oxygen Delivery Method Room Air 05/29/25 11:37 BMI result Body Mass Index 32.8 Assessment & Plan Assessment & Plan (1) Fusion of spine, cervical region: Code(s): M43.22 - Fusion of spine, cervical region Category: Medical (2) Cervical neuropathic pain: Code(s): M54.12 - Radiculopathy, cervical region Category: Medical (3) Chronic pain: Code(s): G89.29 - Other chronic pain Category: Medical Plan Plan Patient was informed and verbally consented to the use of an ambient scribe for clinic note documentation during this visit. 1. Post-Laminectomy Pain Syndrome - Due to extensive posterior neck hardware, the patient is not a candidate for a cervical spinal cord stimulation trial. - The proposed plan is a trial of temporary cervical medial branch nerve stimulation as a potential therapeutic option for the chronic neuropathic pain. - This stimulator would be placed for a two-month period and then removed. - An authorization request will be submitted to insurance for a temporary right C4 medial branch nerve stimulator. - If the procedure is approved by insurance, the patient will be contacted to schedule an appointment. Discussion Notes I discussed with the patient that due to the extensive hardware in the neck region from prior surgeries, the available treatment options are very limited. I presented a trial of a temporary cervical medial branch nerve stimulator, specifically at the right C4 level, as the only potential therapeutic option that might offer some benefit. I explained that this is a temporary device that would be in place for two months and then removed, and I could not guarantee a successful outcome. I informed the patient that we would request authorization from the insurance company for this procedure. I made it clear that if the request is denied, our hands would be tied regarding further intervention. I provided a brochure with information about the procedure. The patient expressed understanding of the plan and was agreeable to proceeding. Patient Instructions - A request will be sent to your insurance provider to approve a trial of a temporary nerve stimulator for your neck pain. - This device will be placed for two months to see if it helps with your pain. - You have been given a brochure with more information about the procedure. - Our office will call you to schedule the procedure if your insurance approves it. Coding Level of Care Code New Pt Level 4 (83764) Diagnoses Fusion of spine, cervical region M43.22 Cervical neuropathic pain M54.12 Chronic pain G89.29
[2025-05-29 11:37] VITALS: BP 116/57; PULSE 88; RESP 16; O2SAT 100; BMI 32.8
== END 2025-05-29 12:25 | disposition home or self-care (01) ==
LOC: HO.PMC 11:24
PROVIDERS: PCP Student in an Organized Health Care Education/Training Program; Visit Provider Internal Medicine
DX: M43.22 Fusion of spine, cervical region (principal); M54.12 Radiculopathy, cervical region; G89.29 Other chronic pain
CPT/HCPCS: 99204

== ENCOUNTER → 2025-05-29 11:23 | Outpatient (BNVA) | payer OTHER, SELFPAY | PROVIDERS: PCP Student in an Organized Health Care Education/Training Program; Visit Provider Internal Medicine | DX: G89.29 Other chronic pain (principal); M54.12 Radiculopathy, cervical region; E11.9 Type 2 diabetes mellitus without complications; M48.02 Spinal stenosis, cervical region; M43.12 Spondylolisthesis, cervical region; R74.8 Abnormal levels of other serum enzymes; Z79.4 Long term (current) use of insulin; M43.22 Fusion of spine, cervical region | CPT/HCPCS: 99202; 99212 ==

== ENCOUNTER 2025-05-29 15:02 | Outpatient (AMB) | payer OTHER, SELFPAY ==
--- NOTE | 2025-05-29 15:42 | MHC.PC.OV ---
Vital Signs 05/29/25 15:53 Height 5 ft 1.57 in Weight 133 lb 2 oz BMI 24.7 BP 133/60 Blood Pressure Location Lt brachial Position Sitting Respiration 18 Pulse 83 Pulse Source Monitor Temp 98 F Temp Source Oral Pulse Oximetry (%) 99 Oxygen Delivery Method Room Air Intake Visit Reasons: Back pain Intake Note: right sided Back and neck pain and ultrasound results Senior Web Architect Required: No Accompanied by: Self / Same As Patient Allergies gabapentin (From Neurontin) Allergy (Unknown, Verified 05/29/25 15:51) RASH valdecoxib (From Bextra) Allergy (Unknown, Verified 05/29/25 15:51) RASH From Aciphex Allergy (Unknown, Uncoded 05/29/25 15:51) RASH From Bentyl Allergy (Unknown, Uncoded 05/29/25 15:51) RASH From Demerol Adverse Reaction (Unknown, Uncoded 05/29/25 15:51) VOMITING Medication List - Last Reconciled 05/29/25 by Maxi Peres MD albuterol sulfate 90 mcg/actuation inhalation ascorbic acid (vitamin C) 500 mg PO DAILY baclofen 5 mg PO TID dapagliflozin propanediol (Farxiga) 10 mg PO DAILY diclofenac potassium 50 mg PO BID esomeprazole magnesium 40 mg PO DAILY ferrous sulfate 325 mg PO DAILY fluoxetine 20 mg PO DAILY fluticasone propionate 50 mcg/actuation 1 spray intranasal Q24H 14 days hydroxyzine HCl 25 mg PO DAILY insulin aspart (niacinamide) 100 unit/mL (3 mL) (Fiasp FlexTouch U-100 Insulin) subcut insulin glargine (Lantus Solostar U-100 Insulin) 20 units (0.2 mL) subcut QPM lidocaine 5% 2 patches topical DAILY losartan 100 mg PO DAILY meclizine mg PO pen needle, diabetic As directed pregabalin 50 mg PO BID tamsulosin mg PO Tobacco use date assessed: 03/20/25 Fall risk assessment: 2 + Falls in past year Last assessed Fall Risk: 05/29/25 Dental Screening Dental Screen Date: 03/20/25 HPI HPI Comments History of Present Illness Details History of Present Illness The patient is a 69 year old individual presenting for review of imaging results and medication refills. Chronic Neck Pain: The patient has a history of chronic neck pain and is being followed by a interventional pain physician, whom the patient saw earlier today. The patient has a history of prior cervical spine surgery with hardware placement, which precludes the use of a spinal cord stimulator. A nerve block procedure is being considered by the pain management team. Diabetes Mellitus: The patient is on Lantus insulin and requests a refill, but does not need a refill of Aspart insulin. The patient also requires a refill of pen needles for the Lantus pen. Health Maintenance: The patient had a mammogram in March which was normal, and a recent abdominal ultrasound was also normal with no evidence of fatty liver. Surgical History: - History of cervical spine surgery with hardware placement and osseous marrow replacement. Medications: - Insulin glargine (Lantus) for diabetes. - Pen needles for insulin pen. - Pain patches (prescribed, but patient has not been able to obtain them from the pharmacy). Social History: - Functional Status: The patient reports being able to walk more without assistance and is able to perform activities like cleaning, but is advised not to overexert. - Living Situation: The patient has an apartment and car in [place] which requires attention. - Support System: The patient's daughter has expressed concern about the patient being home alone and wants the patient to move in with her, but the patient does not wish to do so. - Travel: The patient is planning to travel to [place] from the to the . Diagnostic Results: - Abdominal Ultrasound: Normal, with no evidence of fatty liver. - Mammogram (March): Normal. - MRI Cervical Spine: Findings include mild to moderate multilevel bilateral foraminal narrowing secondary to osteophytes, stable grade 1 spondylolisthesis at C3-C4, and post-surgical changes. - MRI Cervical Spine negative for: spinal stenosis, compressive myelopathy, and acute fracture. Past Medical History - Diabetes mellitus, managed with insulin - Cervical spondylolisthesis - Cervical foraminal narrowing - Chronic pain Health Maintenance - Recent abdominal ultrasound was normal. - Mammogram in March was normal. 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, insulin dependent Fusion of spine, cervical region Cervical neuropathic pain Elevated liver enzymes Chronic anemia Family History Father Heart problem Mother Diabetes Social History (Updated 05/29/25 @ 15:52 by Robert Wilkins CMA) Housing: Apartment Alcohol intake: current Alcohol intake frequency: does not drink Patient Tobacco Use Status: Never used Tobacco e-Cigarette/Vaping Use: Never Used Second Hand Smoke Exposure: No Use of substances other than those prescribed or required for medical reasons: No service: No Current occupational status: disabled Cognitive needs: Yes (walker and wheel chair) Hearing needs: Yes (b/l hearing aids) Vision needs: Yes (rx glasses) Questionnaire Thrive Questionnaire Date Thrive assessed: 03/20/25 I am a: Parent/Caregiver What is your living situation today?: I have a steady place to live Within the past 12 months, did the food you bought not last and you didn't have the money to get more?: Sometimes True Within the past 12 months, did you worry whether your food would run out before you got money to buy more?: Sometimes True Do you have trouble paying for medicines?: No Do you have trouble getting transportation to medical appointments?: No Do you have trouble paying your heating and electricity bill?: No Do you have trouble taking care of your child, family member or friend?: No Are you currently unemployed and looking for a job?: No Are you interested in more education?: No Please select the resources that you would like help with: None Currently or been in a relationship where the following occur: No concerns reported THRIVE Score: 2 CAMILLA-7 AMB Questionnaire CAMILLA-7 Date CAMILLA - 7 assessed: 03/20/25 Source: Developed by Drs. Yuan Cruz, Milli Negron, Chuy Toribio and colleagues, with an educational yulia from [employer]. Review of Systems Narrative Review of Systems - Musculoskeletal: Reports chronic pain managed by a specialist. - All other systems reviewed and are negative. 10-point ROS reviewed and negative except as noted in HPI Physical exam (Primary Care) Vital Signs: Last Vital Signs Temp 98 F 05/29/25 15:53 Pulse 83 05/29/25 15:53 Resp 18 05/29/25 15:53 BP 133/60 05/29/25 15:53 Pulse Ox 99 05/29/25 15:53 Oxygen Delivery Method Room Air 05/29/25 15:53 BMI result Body Mass Index 24.7 Tobacco/Smoking Status: Tobacco use Status Tobacco use date assessed 03/20/25 05/29/25 15:43 Patient Tobacco Use Status Never used Tobacco 05/29/25 15:52 e-Cigarette/Vaping Use Never Used 05/29/25 15:55 Thrive Assessment: Date of Thrive Assessment Date Thrive assessed 03/20/25 05/29/25 15:43 Currently or been in a relationship where the following occur: No concerns reported Narrative Physical Exam General: Well-appearing, in no acute distress. Vital signs: Within normal limits. HEENT: Normocephalic, atraumatic. PERRLA, EOMI. Conjunctiva clear, sclera anicteric. Oropharynx clear, mucous membranes moist. TMs intact bilaterally. Neck: Supple, no lymphadenopathy, no thyromegaly, no JVD or carotid bruits. Cardiovascular: RRR, normal S1/S2, no murmurs, rubs, or gallops. Peripheral pulses 2+ and symmetric. No edema. Respiratory: Lungs clear to auscultation bilaterally, no wheezes, rales, or rhonchi. Normal effort. Abdomen: Soft, non-tender, non-distended. Normoactive bowel sounds. No hepatosplenomegaly, no masses. MSK: Full range of motion, no joint swelling or deformity. Normal gait. Skin: Warm, dry, intact. No rashes, lesions, or pallor. Neuro: Alert and oriented x3. Cranial nerves II-XII intact. Strength 5/5 throughout. Sensation intact. Reflexes 2+ symmetric. Normal coordination and gait. Psych: Appropriate mood and affect. Normal judgment and insight. Coding Level of Care Code Est Pt Level 3 (79047) Diagnoses Cervical neuropathic pain M54.12 Chronic pain G89.29 Diabetes mellitus type 2, insulin dependent E11.9; Z79.4 Foraminal stenosis of cervical region M48.02 Spondylolisthesis, cervical region M43.12 Elevated liver enzymes R74.8 Assessment & Plan Assessment & Plan (1) Cervical neuropathic pain: Code(s): M54.12 - Radiculopathy, cervical region Category: Medical (2) Chronic pain: Code(s): G89.29 - Other chronic pain Category: Medical (3) Diabetes mellitus type 2, insulin dependent: Code(s): E11.9 - Type 2 diabetes mellitus without complications; Z79.4 - long term care administrator (current) use of insulin Category: Medical (4) Foraminal stenosis of cervical region: Code(s): M48.02 - Spinal stenosis, cervical region Category: Medical (5) Spondylolisthesis, cervical region: Code(s): M43.12 - Spondylolisthesis, cervical region Category: Medical (6) Elevated liver enzymes: Code(s): R74.8 - Abnormal levels of other serum enzymes Category: Medical Plan Consent Patient was informed and verbally consented to the use of an ambient scribe for clinic note documentation during this visit. Plan 1. Cervical Spine Disease - Reviewed MRI results, which showed no spinal stenosis or compressive myelopathy, but did show rwfd-[id number] multilevel foraminal narrowing from osteophytes and a stable grade 1 spondylolisthesis at C3-C4. - The findings were explained to the patient, noting that the foraminal narrowing could be impinging on a nerve and causing pain. - A copy of the MRI report was provided to the patient to share with the interventional pain physician. - The patient will continue to follow up with the pain management team, who will use the MRI results to guide further treatment, which may include a nerve block. 2. Diabetes Mellitus - A prescription refill for Lantus insulin was sent to the pharmacy. - A new prescription for 32 gauge, 4 mm subcutaneous pen needles was also sent to the pharmacy. 3. Chronic Pain - The patient reported not receiving the previously prescribed pain patches. - The prescription for the pain patches will be resent to the pharmacy. 4. Follow-Up - The patient will follow up in the clinic in July. Discussion Notes I reviewed the patient's recent imaging results during the visit. The abdominal ultrasound and mammogram were normal, which I relayed to the patient. I discussed the cervical spine MRI findings, explaining that there is ovdj-lv-pxtthlul foraminal narrowing due to osteophytes and a stable grade 1 spondylolisthesis at C3-C4, but no evidence of spinal stenosis or compressive myelopathy. I explained using a diagram how the foraminal narrowing could cause nerve impingement and pain. I confirmed that the interventional pain physician will now have access to these results to formulate a treatment plan, which may include a nerve block, as a spinal cord stimulator is not an option due to prior surgical hardware. I provided the patient with a copy of the report. I refilled the patient's Lantus insulin and sent a prescription for pen needles. Additionally, I am resending the prescription for pain patches which the patient was unable to obtain. I advised the patient that travel is permissible and that the patient can perform light activities as tolerated. A follow-up visit is scheduled for July. Patient Instructions - Your abdominal ultrasound and recent mammogram were both normal. - The MRI of your neck showed some mild to moderate narrowing where the nerves exit the spine, which may be a cause of your pain. - There were no signs of severe problems like spinal cord compression. - Continue to follow up with your interventional pain physician. - I have sent a refill for your Lantus insulin and a new prescription for pen needles to your pharmacy. - I am also resending the prescription for your pain patches. - You can do your normal activities like cleaning as long as you do not overdo it. - Travel is okay. - Your next follow-up appointment with our office is in July. Medical Decision Making The patient is a 69-year-old individual presenting for review of recent imaging studies for chronic neck pain. The clinical focus was to interpret these results in the context of the patient's ongoing symptoms and coordinate care with the interventional pain physician. The cervical spine MRI ruled out acute or emergent conditions such as compressive myelopathy or severe stenosis, which is reassuring. The findings of vkfs-hw-tdufnctu foraminal narrowing due to osteophytes and stable grade 1 spondylolisthesis are chronic changes that correlate with the patient's history and provide a clear anatomical basis for potential radicular pain. This information is essential for the pain management team to proceed with an appropriate treatment plan, likely a nerve block, as a spinal cord stimulator is contraindicated by existing surgical hardware. Management of chronic conditions included refilling Lantus insulin and needles for diabetes. I also addressed a medication access issue by resending the prescription for pain patches. The patient was cleared for travel and light activity, with standard precautions. The plan is to continue current management, facilitate specialized pain treatment, and reassess at a scheduled follow-up in July. Total Time Statement 20 min Total time spent caring for the patient today includes pre-visit chart review, documentation, review of laboratory and diagnostic imaging results, medication reconciliation, medically necessary evaluation, counseling on diagnoses, care coordination, ordering appropriate tests and medications, review of tests performed by other providers, reporting test results to the patient, and communication with other healthcare providers. Medications: New pen needle, diabetic As directed 100 ea 0RF Refilled insulin glargine (Lantus Solostar U-100 Insulin) 20 units (0.2 mL) subcut QPM 15 mL 0RF
[2025-05-29 15:53] VITALS: BP 133/60; PULSE 83; RESP 18; TEMP 36.6; O2SAT 99; BMI 24.7
== END 2025-05-29 16:31 | disposition home or self-care (01) ==
LOC: HO.HMCFMS 15:02
PROVIDERS: PCP Student in an Organized Health Care Education/Training Program; Visit Provider Student in an Organized Health Care Education/Training Program
DX: M54.12 Radiculopathy, cervical region (principal); G89.29 Other chronic pain; E11.9 Type 2 diabetes mellitus without complications; Z79.4 Long term (current) use of insulin; M48.02 Spinal stenosis, cervical region; M43.12 Spondylolisthesis, cervical region; R74.8 Abnormal levels of other serum enzymes

== ENCOUNTER 2025-06-05 10:00 | Outpatient (RCR) | payer OTHER, SELFPAY ==
--- NOTE | 2025-05-09 12:54 | MHC.PT.EP ---
[facility] [place] Office [place] [facility] [place] Office [address] Jolly Hdz [address] [phone] F: [phone] F: [phone] F: [phone] F: [phone] Physical Therapy Plan of Care Date of Evaluation: 05/09/25 Date of Surgery: 12/10/24 Diagnosis: status post cervical fusion DOS 12/10/24 (RL) Assessment: pt is a 69 y/o female presenting to physical therapy w/ referring diagnosis of status post cervical fusion DOS 12/10/24. Impairments include pain, decreased range of motion, decreased strength, impaired functional mobility, impaired postural awareness, and altered ambulation mechanics. pt is a good candidate for skilled PT due to age, potential remediation of impairments, typical disease/condition progression and prognosis, comorbidities, and motivation. pt would benefit from skilled PT intervention to provide a tailored strengthening and stretching exercise program, functional training, gait training, postural re-training, neuromuscular re-education, modalities as needed for pain, equipment safety demonstration. Frequency and Duration: The patient will be seen 2x/wk for 4 wks Short Term Goals: pt will be I w/ HEP to promote self-management of condition. pt will improve her shoulder strength by at least 1/2 MMT grade to promote ease in upper body ADLs. Skilled Nursing Goals: pt will improve her TUG to a range of 7.9 +/- 0.9 w/o AD to reduce fall risk and improve functional I. pt will improve her 5xSTS to < or equal to 11 sec w/o AD to reduce fall risk and improve functional I. pt will navigate 12 stairs using railing mod I level to promote I w/ community navigation. Treatment Plan: Modalities to reduce pain, spasms and effusion. Manual therapy to restore motion and function. Therapeutic exercise to improve strength and flexibility. Neuromuscular re-education for posture and balance. Therapeutic activities to return to functional activities of daily living. Electronically signed by: Mallorie Vila PT, DPT Please sign and return to therapist. Thank you for your referral.
--- NOTE | 2025-06-26 15:12 | MHC.PT.DC ---
[facility] [place] Office [place] Office [place] Office [address] Jolly [address] [facility] [phone] F: [phone] F: [phone] F: [phone] F: [phone] Physical Therapy Discharge Report Diagnosis: status post cervical fusion DOS 12/10/24 (RL) Date of Surgery: 12/10/24 Date of Evaluation: 05/09/25 Date of Discharge: 06/26/25 Treatments to Date: 8 Cancellations to Date: 0 No Shows to Date: 0 Discharge Status: Improved Function Independent with HEP Recommend MD Follow-up Discharge Summary: The patient overall has shown improvement in basic level functional tasks regarding safety awareness and physical balance. She continues to have some difficulty and unsteadiness with activities such as turning while ambulating, stair navigation, and uneven surfaces. I believe this is partly due to the cervicothoracic fusion making it difficult for her to perform head turns making it difficult for her to observe her environment and accommodate. She is also impulsive which adds an additional layer to her safety. She achieved her short term goals and made progress towards her terminal clerk goals. Her plan is to return to [place] tomorrow to resume independent living. She does have a follow-up with a neurosurgeon today so session ended early to allow her time to attend this appointment. The patient is discharged from this physical therapy plan of care with the recommendation to resume some form of rehabilitation while in [place]. She was educated on this. Electronically signed by: Mallorie Vila PT, DPT Please sign and return to therapist. Thank you for your referral.
== END 2025-06-26 15:13 | disposition home or self-care (01) ==
LOC: HO.PT 10:00
PROVIDERS: PCP Student in an Organized Health Care Education/Training Program; Visit Provider Student in an Organized Health Care Education/Training Program
DX: Z98.1 Arthrodesis status (principal)
CPT/HCPCS: 97110; 97112; 97116; 97163; 97164

== ENCOUNTER 2025-06-05 10:39 | Outpatient (AMB) | payer OTHER, SELFPAY ==
--- NOTE | 2025-06-05 10:45 | A.SPINEOV_ITS ---
Intake Visit Reasons: neck pain Intake Note: Ms. Dominguez is here today c/o neck pain. MRI done at [facility]. Supervisor Particleboard Required: No Allergies gabapentin (From Neurontin) Allergy (Unknown, Verified 05/29/25 15:51) RASH valdecoxib (From Bextra) Allergy (Unknown, Verified 05/29/25 15:51) RASH From Aciphex Allergy (Unknown, Uncoded 05/29/25 15:51) RASH From Bentyl Allergy (Unknown, Uncoded 05/29/25 15:51) RASH From Demerol Adverse Reaction (Unknown, Uncoded 05/29/25 15:51) VOMITING Assessment & Plan Assessment & Plan (1) Fusion of spine, cervical region: Code(s): M43.22 - Fusion of spine, cervical region Category: Medical Plan Dear Dr Peres, Thank you for referring Mrs Dominguez to our office today. She is a 69-year-old diabetic female with a complicated cervical spinal history, she had a surgery in 2003, anterior cervical fusion C4-6 by a surgeon locally here in [place]. The surgery went fine, she recovered, and was doing okay until sometime in November of this year when she was in [facility] where she lives, and began experiencing weakness of her left leg. Ultimately she went to the emergency room, was found to have some kind of neck infection, was brought to the operating room and underwent a large extensive anterior and posterior cervical neck operation. I am not sure what the organism was that they found, however she remembers 1 of the Infectious Disease doctors asking her if she had ever been to [place]. Her spine surgeon was Dr Waite, and she believes the hospital was [facility]. She was in the hospital for number of weeks on IV antibiotics, then subsequently transferred to a rehab. Sometime around January she came up here to [place] to live with her daughters who could look after her better since she lives alone down in [place]. She is looking to establish care here [place], however she tells me that she is flying down to [place] tomorrow and will likely just take up residence back in [place], unless her daughters object. She is currently having no fevers. She has not followed up with a spine, or the infectious disease team. The weakness that she had in her leg is significantly better, to the point now where she is more less independent with walking. She is using a walker and completed physical therapy here at [facility], but believes she could likely walk without it and anticipates moving onto a cane very soon. No other neurological symptoms to report. She does have neck pain. It is not incapacitating however. She does have some copies of the paperwork of her hospital stay in November but forgot to bring it to the office. PMH: She is a diabetic, A1c 7.7, history of asthma, obstructive sleep apnea. She reports a history of rheumatoid arthritis but I do not see any listing of that in her chart. She has elevated liver enzymes, chronic anemia, history of finger surgery, lumpectomy for benign breast masses, hysterectomy, tubal ligation, cholecystectomy, reports colon resection secondary to diverticulitis, left shoulder surgery, appendectomy. Denies any history of renal disease, bleeding disorders, blood clots, major cardiopulmonary disease etc.. Social hx: She quit smoking and drinking in the . She does not use any recreational drugs Medications: She could not recall her medications Allergies: Neurontin makes her itchy but did not report any other allergies Physical exam: She is able to independently stand up out of a chair, walk down the hallway, slightly unsteady, Romberg test negative. Strength reveals some mild weakness of her left hip flexor but otherwise she has full strength. Reflexes slightly brisk on the left but I did not detect any clonus or Evon's sign. She has a well healed right anterior neck incision, as well as a large posterior cervical neck incision which is well healed. Imaging review: There is a cervical MRI showing postsurgical changes with what looks like a large laminectomy from C3-C6, with what looks like posterior instrumentation at the C2 level with a large klaus extending bilaterally down to the C7 and T1 regions. There is no residual spinal cord compression. It looks like the anterior plate that was present on her CT from 2022 is now gone. There is some degenerative changes at C3-4. Impression: 69-year-old female diabetic, presents to establish care at a spine practice, after having had some kind of spinal infection in November of this year which resulted in a large cervical laminectomy, posterior instrumentation and removal of her previous anterior plate. She has for the most part recovered significant function that she lost when she had the infection. Her initial symptom was left leg weakness and gait instability. More less now she is able to stand and walk around the room and up and down the cord or with some slight instability but not any overt ataxia. Her strength is nearly full. She is using a walker when she is out of the house but does not feel like she needs it. She did complete physical therapy here at [facility]. She is not having any fevers or constitutional symptoms. Her white count is normal. I will get a set of x-rays just to look at the hardware little more closely. The cervical MRI does not show any evidence of residual spinal cord compression or any signs of r esidual infection in the spinal canal. She does have neck pain, but it is not incapacitating. I will show her imaging to Dr. Thomas. I will obtain copies of the official records from the [facility] where she had her surgery as well as consultations from the ID team and the spine surgeon. It does not look like she needs any surgery at this point as she is recovering nicely. Thank you for allowing us to care for your patient. The total time spent with this visit with this patient was[] minutes reviewing history, physical exam, [] imaging review, and implementation of treatment plan or further diagnostic testing Jose Thomas MD,PhD [facility] Orders: Orders XR cervical spine 4V Today M43.22 - Fusion of spine, cervical region Coding Level of Care Code New Pt Level 4 (71835) Diagnoses Fusion of spine, cervical region M43.22
== END 2025-06-05 11:42 | disposition home or self-care (01) ==
LOC: HO.HNS 10:39
PROVIDERS: PCP Student in an Organized Health Care Education/Training Program; Referring Provider Student in an Organized Health Care Education/Training Program; Visit Provider Physician Assistant
DX: M43.22 Fusion of spine, cervical region (principal)
CPT/HCPCS: 99204

== ENCOUNTER 2025-06-05 10:39 | Outpatient (REF) | payer OTHER, SELFPAY ==
--- NOTE | ~2025-06-05 | XR_ITS ---
EXAMINATION: XR CERVICAL SPINE CLINICAL INFORMATION: M43.22 - Fusion of spine, cervical region COMPARISON: MRI May 28, 2025 TECHNIQUE: 3 views of the cervical spine were obtained. FINDINGS: Postsurgical changes are present. There are posterior pedicle screws C2 they are connected the rods to pedicle screws C7-T1. C4-C5-C6 are irregular with shortening of the vertebral bodies and patchy areas of sclerosis and osteopenia. With flexion and extension, there is limited range of motion, no gross instability. There is no prevertebral soft tissue edema. XR/XR cervical spine 4V IMPRESSION: Posterior fusion stabilizing abnormal vertebral bodies at C4-C5-C6. No gross instability with flexion and extension. However, there is limited range of motion. Electronically signed by: Damion Starr MD 06/05/2025 11:42 AM JULIÁN PARKER
== END 2025-06-05 10:40 | disposition home or self-care (01) ==
LOC: HO.HOSX 10:39
PROVIDERS: PCP Student in an Organized Health Care Education/Training Program; Referring Provider Student in an Organized Health Care Education/Training Program; Visit Provider Physician Assistant
DX: M43.22 Fusion of spine, cervical region (principal)
CPT/HCPCS: 72050; 99202

== ENCOUNTER → 2025-06-05 11:25 | Outpatient (BNV) | payer OTHER, SELFPAY | PROVIDERS: PCP Student in an Organized Health Care Education/Training Program; Referring Provider Student in an Organized Health Care Education/Training Program; Visit Provider Radiology Diagnostic Radiology | DX: M43.22 Fusion of spine, cervical region (principal) | CPT/HCPCS: 72050 ==